=== PATIENT | female | born 1965 | race Caucasian/White ===

== ENCOUNTER → 2017-01-27 | Outpatient (CLI) | payer OTHER, BC ==
[~2017-01-27] MED LIST: BIOF500C2 PO; BIOTCAP2 PO; CHOL100010 PO; COEN1CAP17 PO; IBUP-1277 PO; LEVAAER2 INH; MAGN400T6 PO; NAPR1TAB9 PO; OMEG10007 PO; PRENTAB26 PO; VITACAP37 PO; VITAMIN B12 SL; [UNRECOGNIZED DRUG - CODE] PO
--- NOTE | 2017-01-27 11:47 | DIAGNOSTIC IMAGING REPORT ---
L-SPINE MIN 4 VIEWS ROUTINE CLINICAL HISTORY: LOW BACK PAIN COMPARISON STUDY: 09/03/2010 FINDINGS: There is no pathologic bowel dilatation. There is mild fecal retention. No fractures or subluxations are visualized. There are degenerative changes with disc space narrowing at the L5-S1 level. IMPRESSION: Moderate degenerative changes the L5-S1 level. No fractures or subluxations are visualized. Electronically signed by: Karl Reed M.D. 01/27/2017 11:46 AM Dictated Date/Time: 01/27/2017 11:45 AM
== END | disposition home or self-care (01) ==
LOC: C.RAD1850 11:12
PROVIDERS: ATTEND Nurse Practitioner Adult Health
DX: M54.5 Low back pain (principal)

== ENCOUNTER → 2017-06-02 | Outpatient (CLI) | payer BC ==
--- NOTE | 2017-06-02 11:06 | DIAGNOSTIC IMAGING REPORT ---
CHEST 2 VIEWS ROUTINE CLINICAL HISTORY: 51 years-old Female presenting with J44.9 Chronic obstructive pulmonary [id number] Status post pn. TECHNIQUE: PA and lateral views of the chest were obtained. COMPARISON: Chest CT from 09/24/2015 and chest x-ray from 08/30/2015. FINDINGS: Atherosclerosis of aortic arch. Cardiac silhouette normal in size. Lungs and pleural spaces clear. Degenerative changes of the thoracic spine. Upper abdomen normal. IMPRESSION: 1. No acute cardiopulmonary disease. Electronically signed by: Lan Falcon M.D. 06/02/2017 11:05 AM Dictated Date/Time: 06/02/2017 11:03 AM
== END | disposition home or self-care (01) ==
LOC: C.RAD1850 10:52
PROVIDERS: ATTEND Internal Medicine Pulmonary Disease
DX: J44.9 Chronic obstructive pulmonary disease, unspecified (principal); Z87.09 Personal history of other diseases of the respiratory system

== ENCOUNTER → 2017-11-06 | Outpatient (CLI) | payer BC, OTHER ==
--- NOTE | 2017-11-06 13:38 | DIAGNOSTIC IMAGING REPORT ---
AP STANDING VIEW OF BOTH KNEES; 3 VIEWS RIGHT KNEE CLINICAL HISTORY: Right knee pain. FINDINGS: An AP standing view of both knees with lateral, tunnel, and sunrise views of the right knee are compared to study dated 10/22/2011. The skeletal structures are well mineralized. No fracture is seen. There is mild tricompartmental degenerative joint space narrowing. There are small patellar enthesophytes as well as mild degenerative beaking of the tibial spine. Mild lateral subluxation of the patella is noted in both knees on the frontal view. No osteochondral defect is seen on the tunnel view. A small joint effusion is identified. The overlying soft tissues are within normal limits. Survey images of the left knee on the frontal view show mild narrowing of the medial and lateral compartments with no acute osseous body suggested. IMPRESSION: 1. Small joint effusion with no acute bony abnormality seen in the right knee. 2. Mild degenerative change as above. 3. Mild lateral subluxation of both patellae is suggested on the frontal view. Electronically signed by: Gregory Hong M.D. 11/06/2017 1:37 PM Dictated Date/Time: 11/06/2017 1:34 PM
== END | disposition home or self-care (01) ==
LOC: C.RDSM 14:49
PROVIDERS: ATTEND Physician Assistant
DX: M25.561 Pain in right knee (principal); M25.461 Effusion, right knee